=== PATIENT | male | born 1980 | race Hispanic/Latino ===

== ENCOUNTER 2017-04-14 17:48 | Day surgery (SDC) | payer OTHER ==
[~2017-04-14] VITALS: Ht 180.3 cm; Wt 79.3 kg
[2017-04-14] MEDS ORDERED: KLON1TAB PO (18:21)
[2017-04-14] MEDS ORDERED: ONDANSETRON 4MG/2ML VIAL (J2405) IV ONE ×2 (18:45→21:00)
[2017-04-14] MEDS ORDERED: NS 1,000 ML IV ONE (18:45)
[2017-04-14] MEDS ORDERED: PANTOPRAZOLE 40MG INJ (PROTONIX) (C9113) IV ONE (18:45)
[2017-04-14] MEDS: MORPHINE 2 MG/ML 1ML SYRINGE IV PRN ×3 (19:07→20:54)
[2017-04-14 19:20] LABS: BASO % 0.2 % (0.0-1.0); IMMATURE GRANULOCYTE % 0.3 % (0-0); LYMPH # 3.9 10^3/uL (1.5-4.5); LYMPH % 24.3 % (24.0-44.0); MEAN CORPUSCULAR HEMOGLOBIN 30.3 pg (27.0-33.0); MEAN CORPUSCULAR HGB CONC 35.3 g/dl (32.0-36.5); MEAN CORPUSCULAR VOLUME 85.8 fl (80.0-96.0); MONO % 6.2 % (0.0-5.0); NEUTROPHILS # 11.1 10^3/uL (1.8-7.7); PLATELET COUNT, AUTOMATED 281 10^3/uL (150-450); RED CELL DISTRIBUTION WIDTH 11.9 % (11.5-14.5); WHITE BLOOD COUNT 16.2 10^3/uL (4.0-10.0)
--- NOTE | 2017-04-14 19:20 | REPUSA ---
CT of the abdomen and pelvis without contrast Clinical statement: Pain. Technique: Multiple axial CT images were obtained from the base of the lungs to the floor of the pelv is utilizing 5 mm axial slices without administration of contrast. Coronal and sagittal reconstructio ns were also obtained. No comparison is available. Findings: Chest: The visualized lung bases are clear. Abdomen: The kidneys are normal in size bilaterally. There is no evidence of hydronephrosis or nephro lithiasis. The liver, spleen, pancreas, gallbladder and adrenal glands are unremarkable. The aorta de monstrates normal caliber and contour. There is no abdominal lymphadenopathy or ascites. Pelvis: The appendix is slightly thickened dilated measuring up to 12 mm. There are 2 calcific densit y is within the appendix consistent with appendicoliths. The bowel is otherwise unremarkable, with no obstructive or inflammatory changes. The urinary bladder is within normal limits. There is no pelvic lymphadenopathy or ascites. The other pelvic structures appear unremarkable. Bones: There are no suspicious osseous abnormalities seen. There is mild levoscoliosis noted. Impression: Thickened appendix containing appendicoliths as described. No surrounding fluid or inflam mation. The findings are suspicious for early acute appendicitis however. Follow-up is recommended as clinically indicated. Oscar in the ER was notified of these findings at 7:12 PM on 04/14/2017.
[2017-04-14 19:34] LABS: INR 1.01
[2017-04-14 19:48] LABS: ALBUMIN 4.8 GM/DL (3.2-5.2); ALKALINE PHOSPHATASE 63 U/L (45-117); ALT/SGPT 26 U/L (12-78); AMYLASE 73 U/L (25-115); ANION GAP 13 MEQ/L (8-16); AST/SGOT 17 U/L (15-37); BILIRUBIN,DIRECT 0.2 MG/DL (0.0-0.2); BILIRUBIN,TOTAL 0.7 MG/DL (0.2-1.0); BLOOD UREA NITROGEN 22 MG/DL (7-18); CALCIUM LEVEL 10.3 MG/DL (8.5-10.1); CARBON DIOXIDE LEVEL 23 MEQ/L (21-32); CHLORIDE LEVEL 103 MEQ/L (98-107); CREATININE FOR GFR 1.13 MG/DL (0.70-1.30); GLOMERULAR FILTRATION RATE > 60.0 (>60); GLUCOSE, FASTING 93 MG/DL (70-105); POTASSIUM SERUM 3.7 MEQ/L (3.5-5.1); SODIUM LEVEL 139 MEQ/L (136-145); TOTAL PROTEIN 8.5 GM/DL (6.4-8.2)
[2017-04-14] MEDS ORDERED: TUMS500C PO (20:55)
[2017-04-14] MEDS ORDERED: PIPERACILLIN/TAZOBACTAM SOD 3.375 GM in D5W 50 ML IV ONE (21:30)
[2017-04-14] MEDS ORDERED: BUPIVACAINE HCL 0.25% 30 ML VIAL As Ordered ONE (21:37)
[2017-04-14] MEDS ORDERED: ZOSYN 3.375 GM VIAL (J2543) As Ordered ONE (22:05)
[2017-04-14] MEDS ORDERED: fentaNYL 250 MCG/5 ML INJECTION (J3010) As Ordered ONE (22:10)
[2017-04-14] MEDS ORDERED: MIDAZOLAM INJ 2 MG/2 ML VIAL (J2250) As Ordered ONE (22:10)
[2017-04-14] MEDS ORDERED: PROPOFOL 200 MG/20 ML VIAL As Ordered ONE (22:11)
[2017-04-14] MEDS ORDERED: GLYCOPYRROLATE INJ 0.2 MG/ML 2 ML VIAL As Ordered ONE ×2 (22:11→23:04)
[2017-04-14] MEDS ORDERED: NEOSTIGMINE 10 MG/10 ML VIAL (J2710) As Ordered ONE ×2 (22:11→23:04)
[2017-04-14] MEDS ORDERED: ONDANSETRON 4MG/2ML VIAL (J2405) As Ordered ONE (22:11)
[2017-04-14] MEDS ORDERED: METOCLOPRAMIDE INJ 10MG/2ML VIAL (J2765) As Ordered ONE (22:11)
[2017-04-14] MEDS ORDERED: KETOROLAC 60 MG/2 ML VIAL (J1885) As Ordered ONE (22:11)
[2017-04-14] MEDS ORDERED: LIDOCAINE 2% INJ 100 MG/5 ML SDV (FOR ANES.) As Ordered ONE (22:11)
[2017-04-14] MEDS ORDERED: ROCURONIUM BROMIDE 50 MG/5 ML VIAL/SYRINGE As Ordered ONE (22:11)
[2017-04-14] MEDS ORDERED: dexameTHASONE 4 MG/ML 1ML VIAL (J1100) As Ordered ONE (23:02)
[2017-04-14] MEDS ORDERED: LR 1,000 ML IV SCH ×2 (23:33→23:45)
[2017-04-14] MEDS ORDERED: MEPERIDINE INJ 25 MG/ML VIAL (J2175) IV PRN (23:45)
[2017-04-14] MEDS ORDERED: fentaNYL 100 MCG/2 ML INJECTION (J3010) IV PRN (23:45)
[2017-04-14] MEDS ORDERED: METOCLOPRAMIDE INJ 10MG/2ML VIAL (J2765) IV PRN (23:45)
[2017-04-14] MEDS ORDERED: ONDANSETRON 4MG/2ML VIAL (J2405) IV PRN ×2 (23:45)
[2017-04-14] MEDS ORDERED: PERCOCET 5MG/325MG TAB PO PRN (23:45)
[2017-04-14] MEDS ORDERED: ACETAMINOPHEN TAB 650MG DOSE (2X325MG) PO PRN (23:45)
[2017-04-14] MEDS ORDERED: MORPHINE 2 MG/ML 1ML SYRINGE IV PRN (23:45)
[2017-04-14] MEDS ORDERED: KETOROLAC 30 MG/ML VIAL (J1885) IV PRN (23:45)
[2017-04-15] VITALS (9 sets, daily range): BP systolic 97–133; BP diastolic 50–64
[2017-04-15] MEDS: NORCO, ANEXSIA 5/325MG TABLET (HYDROcodone/ACETAMINOPHEN) PO PRN ×2 (05:20→14:11)
--- NOTE | 2017-04-15 10:28 | RO ---
DATE OF PROCEDURE: 04/14/2017 PREOPERATIVE DIAGNOSIS: Acute appendicitis. POSTOPERATIVE DIAGNOSIS: Acute appendicitis. PROCEDURE: Laparoscopic appendectomy. SURGEON: Dr. Morales ANESTHESIA: General. INDICATIONS FOR PROCEDURE: Patient is a 36-year-old man who presented to the emergency department with a 1-day history of abdominal pain worsening during the course of the day. He developed some nausea and vomiting. He was found to have tenderness in the right lower quadrant. His white cell count was elevated to [address] scan suggested some dilation of the appendix with appendicolith present. He is now for laparoscopic appendectomy. OPERATIVE PROCEDURE: The patient was placed under general endotracheal anesthesia. The patient's abdomen was prepped and draped in a sterile fashion. 0.25% Marcaine was infiltrated at each of the trocar sites. A short supraumbilical midline incision was made and deepened through the subcutaneous tissues. The fascia was opened along the midline of the peritoneum was opened bluntly. A Sony cannula was inserted. The abdomen was insufflated with carbon dioxide gas and a laparoscopic was placed. Initial examination showed a normal-appearing liver. Visualized loops of the small and large bowel were normal. There was no free fluid identified. The patient was rolled slightly to the left. A 5 mm trocar was placed low in the midline and a second 5 mm trocar was placed in the left lower quadrant. Graspers were inserted and the terminal ileum was rotated medially. The distended appendix was identified just lateral to the terminal ileum. It was edematous and there was evidence of inflammation. The mesoappendix was grasped. Some filmy attachments of the terminal ileum laterally were divided using the hook cautery. Some attachments around the base of the appendix were also divided. An opening was created through the mesoappendix, and the mesoappendix was then stapled with a linear cutter 45 stapler with a white load. With division of few remaining filmy attachments around the base of the appendix, the base was the base of the appendix was stapled at its juncture with the cecum using the linear cutter 45 with a blue load. The appendix was placed in an Endopouch. The right lower quadrant was irrigated and inspected. The base of the appendix was nicely closed and there was no bleeding from either the staple lines. The patient was returned to a flat position. The abdomen was deflated and the trocars were removed. The appendix was recovered through the Sony site. The fascia at the Sony site was closed with interrupted simple sutures of #2-0 Vicryl. The skin incisions were all closed with buried #5-0 Vicryl and Steri-Strips. Light dressings were applied. The patient tolerated the procedure well without apparent complication. He was awakened in the operating room, extubated and moved to the recovery room in stable condition. WILD
[2017-04-15] MEDS ORDERED: NORCOTAB PO (16:24)
--- NOTE | 2017-04-15 16:45 | IPN ---
DATE: 04/15/2017 The patient is now approximately 14 hours postoperative from his laparoscopic appendectomy. He has done very well during the morning. He has been taking a diet, voiding without difficulty, and has been up ambulating. Vital signs show that he has been afebrile. Pulse has diminished into the high 40s, and his respiratory rate is 16. Blood pressure is fine. Intake and output show that he has over 1600 mL in postoperative. PHYSICAL EXAMINATION: Shows that he is moving well. He has a flat abdomen with three small, dry 2 x 2 dressings. He does have bowel sounds on auscultation of the abdomen, and the abdomen is without undue tenderness. IMPRESSION: Doing well status post laparoscopic appendectomy. PLAN: The patient will be released home today. 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 He has requested a prescription for pain medication be sent to the [facility] in [place] so that he can get that this evening, and I have sent a prescription for 15 [place] tablets. He was advised that he should avoid strenuous physical activity for the next 2 weeks. He should schedule an appointment to see me in approximately 2 weeks. He can eat as tolerated. He was counseled regarding the reasons to call my office for any concerns. WILD
== END 2017-04-15 17:25 | disposition home or self-care (01) ==
LOC: M ED 17:48 → M SDC 21:41 → M PED 04-15 00:15 → M SDC 04-15 17:25
PROVIDERS: ATTEND Surgery
DX: K35.80 Unspecified acute appendicitis (principal); F41.0 Panic disorder [episodic paroxysmal anxiety]; K21.9 Gastro-esophageal reflux disease without esophagitis; Z72.0 Tobacco use
CPT/HCPCS: 44970; 74176; 80048; 80076; 81001; 82150; 83690; 85025; 85610; 87086; 88304; 96374; 96375; 96376; 99284; C9113; J1100; J1885; J2250; J2405; J2543; J2710; J2765; J3010